=== PATIENT | male | born 1950 | race African-American/Black ===

== ENCOUNTER 2018-05-28 05:48 | Emergency (ER) | payer MEDICARE, OTHER ==
[~2018-05-28] VITALS: Ht 182.9 cm; Wt 76.5 kg
--- NOTE | 2018-05-28 06:22 | RAD ---
INDICATION: right sided weakness, slurred speech, fall COMPARISON: None. TECHNIQUE: Axial CT images obtained through the head without intravenous contrast. One or more of the following individualized dose reduction techniques were utilized for this examination: 1. Automated exposure control; 2. Adjustment of the mA and/or kV according to patient size; 3. Use of iterative reconstruction technique. FINDINGS: No intracranial hemorrhage. No midline shift. Basal cisterns patents. Ventricles and sulci are globally prominent. No acute osseous abnormality. Orbits and paranasal sinuses unremarkable. Scattered foci of low attenuation within the white matter. Dense calcifications of falx. IMPRESSION: 1. No acute intracranial hemorrhage. 2. Scattered regions of low attenuation within the white matter. Non-specific in nature but frequently secondary to small vessel ischemic disease. If there is concern for acute etiology clinically MRI could better assess whether any of these foci are acute. 3. Prominence of ventricles and sulci which is frequently secondary to age related volume loss. Report called to the ER at 6:15 AM on date of exam. Electronically signed by: Skyler Abreu MD (05/28/2018 6:19 AM) [facility]
[2018-05-28] MEDS ORDERED: IOHEXOL 350 MG/ML 100 ML VIAL. IV ONE (06:30)
[2018-05-28 06:40] LABS: BASO % 0 % (0-3); EOS # 0.2 x10^3/uL (0.0-0.7); EOS % 2 % (0-3); HEMATOCRIT 40.7 % (39.0-53.0); HEMOGLOBIN 13.7 g/dL (13.0-17.5); LYMPH # 1.2 x10^3/uL (1.0-4.8); LYMPH % 17 % (24-48); MEAN CORPUSCULAR HEMOGLOBIN 29 pg (25-35); MEAN CORPUSCULAR HGB CONC 34 g/dL (31-37); MEAN CORPUSCULAR VOLUME 85 fL (79-100); MONO # 0.5 x10^3/uL (0.0-1.1); MONO % 7 % (0-9); NEUT # 5.5 x10^3uL (1.8-7.7); NEUT % 74 % (31-73); PLATELET COUNT 257 x10^3/uL (140-400); RED BLOOD COUNT 4.78 x10^6/uL (4.30-5.70); RED CELL DISTRIBUTION WIDTH 13.7 % (11.5-14.5); WHITE BLOOD COUNT 7.5 x10^3/uL (4.0-11.0)
[2018-05-28] MEDS ORDERED: CONTRAST GIVEN MC PRN (06:45)
[2018-05-28 06:55] LABS: ALBUMIN 3.9 g/dL (3.4-5.0); ALBUMIN/GLOBULIN RATIO 0.9 (1.0-1.7); CALCIUM 9.4 mg/dL (8.5-10.1); CREATININE 0.9 mg/dL (0.7-1.3); GFR 84.2; POTASSIUM 4.2 mmol/L (3.5-5.1); TOTAL BILIRUBIN 0.2 mg/dL (0.2-1.0); TOTAL PROTEIN 8.1 g/dL (6.4-8.2)
--- NOTE | 2018-05-28 06:58 | EKG ---
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
--- NOTE | 2018-05-28 07:29 | PHYS DOC ---
Adult General Chief Complaint Chief Complaint: Stroke HPI HPI 67 year old male presents via EMS as a code stroke. The patient stays at the [facility] and around 5 AM his morning anklet went off indicating likely fall. When the staff attended to the patient they noticed right-sided weakness and right-sided facial droop. His last known time well was last night at bedtime which is at least 8 hours ago. Currently, the patient realizes that he cannot move his right leg very well and that his right arm is weaker than normal. He denies any recent alcohol or drug use. He is not complaining of headache or any other pain. He states that this weakness is new. He denies feeling ill prior to morning. Denies fever or chills. 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 Review of Systems Review of Systems Constitutional: Denies fever or chills [] Eyes: Denies change in visual acuity, redness, or eye pain [] HENT: Denies nasal congestion or sore throat [] Respiratory: Denies cough or shortness of breath [] Cardiovascular: No additional information not addressed in HPI [] GI: Denies abdominal pain, nausea, vomiting, bloody stools or diarrhea [] : Denies dysuria or hematuria [] Musculoskeletal: Denies back pain or joint pain [] Integument: Denies rash or skin lesions [] Neurologic: Denies headache. Focal weakness in right upper and lower extremity, dysarthria[] Endocrine: Denies polyuria or polydipsia [] All other systems were reviewed and found to be within normal limits, except as documented in this note. Current Medications Current Medications Current Medications Medications (Trade) Dose Ordered Sig/Crow Start Time Stop Time Status Last Admin Dose Admin Info (Do NOT chart on this entry -- for MONITORING) 1 each PRN DAILY PRN 05/28/18 06:45 05/30/18 06:44 Iohexol (Omnipaque 350 Mg/ml) 100 ml 1X ONCE 05/28/18 06:30 05/28/18 06:31 Allergies Allergies Allergies Coded Allergies Type Severity Reaction Last Updated Verified No Known Drug Allergies 05/28/18 No Physical Exam Physical Exam Constitutional: Well developed, well nourished, no acute distress, non-toxic appearance. [] HENT: Normocephalic, atraumatic, bilateral external ears normal, oropharynx moist, no oral exudates, nose normal. [] Eyes: PERRLA, EOMI, conjunctiva normal, no discharge. [] Neck: Normal range of motion, no tenderness, supple, no stridor. [] Cardiovascular:Heart rate regular rhythm, no murmur [] Lungs & Thorax: Bilateral breath sounds clear to auscultation [] Abdomen: Bowel sounds normal, soft, no tenderness, no masses, no pulsatile masses. [] Skin: Warm, dry, no erythema, no rash. [] Back: No tenderness, no CVA tenderness. [] Extremities: No tenderness, no cyanosis, no clubbing, ROM intact, no edema. [] Neurologic: Alert and oriented, right upper and lower extremity weakness, dysarthria, see NIH scale [] Psychologic: Affect normal, judgement normal, mood normal. [] EKG EKG Sinus rhythm, rate 78, normal axis, no ST elevations or depressions.[] Radiology/Procedures Radiology/Procedures [] Impressions: INDICATION: right sided weakness, slurred speech, fall COMPARISON: None. TECHNIQUE: Axial CT images obtained through the head without intravenous contrast. One or more of the following individualized dose reduction techniques were utilized for this examination: 1. Automated exposure control; 2. Adjustment of the mA and/or kV according to patient size; 3. Use of iterative reconstruction technique. FINDINGS: No intracranial hemorrhage. No midline shift. Basal cisterns patents. Ventricles and sulci are globally prominent. No acute osseous abnormality. Orbits and paranasal sinuses unremarkable. Scattered foci of low attenuation within the white matter. Dense calcifications of falx. IMPRESSION: 1. No acute intracranial hemorrhage. 2. Scattered regions of low attenuation within the white matter. Non-specific in nature but frequently secondary to small vessel ischemic disease. If there is concern for acute etiology clinically MRI could better assess whether any of these foci are acute. 3. Prominence of ventricles and sulci which is frequently secondary to age related volume loss. Report called to the ER at 6:15 AM on date of exam. Electronically signed by: Jade Hurtado MD (05/28/2018 6:19 AM) [facility] DICTATED AND SIGNED BY: JADE HURTADO MD DATE: 05/28/18 0619 CC: TATA EMERY Jr. DO; LAST NEGRON DO; PCP,NO ~ Examination: CT ANGIOGRAPHY HEAD AND NECK History: Possible stroke. Weakness, slurred speech, fall Comparison/Correlation: None FINDINGS: Axial images of the head and neck were obtained following IV contrast To arteriography protocol. MIP images provided. 3-D images provided of the arterial vasculature. Angiographic findings: The aortic arch has a typical branching pattern. There is no arch vessel stenosis. Both common carotid arteries are patent without stenosis. Both internal carotid arteries are patent without stenosis. The external carotid systems are patent. Dominant right vertebral artery is evident. The left vertebral artery is fairly diminutive. Opacification of the left vertebral artery is not well delineated at the C1 and C2 levels. The basilar artery is patent. Both posterior cerebral arteries are patent. The posterior communicating arteries are visualized. The intracranial internal carotid arteries demonstrate no stenosis. The middle cerebral arteries are patent. The anterior cerebral arteries are patent. Significant calcification of the anterior falx is noted. Enhancement of the brain is unremarkable on arterial phase imaging. Nonangiographic findings: There is no intracranial hemorrhage. Shetty-white differentiation is preserved. The ventricles are normal in size and position. Mild chronic paranasal sinusitis is evident.. The orbits are unremarkable. The temporal bones are unremarkable. Bone windows reveal no suspicious lesions. The lung apices demonstrate no acute abnormality. The parotid glands and submandibular glands are unremarkable. The thyroid gland demonstrates no suspicious lesions. There are no laryngeal or pharyngeal masses. There are no pathologically enlarged lymph nodes. Atlantoaxial joint degenerative remodeling is present. Slight anterolisthesis of C3 relation C4 is present anterolisthesis of C3 relation C4 by 0.4 cm present. This is less than grade 1 extent. Severe C3-4 disc space narrowing is present. Anterolisthesis of C3 relation C4 by 0.6 cm is present and between grade 1-2 extent. Reversal cervical lordosis is notable at this level. Moderate seen 4-5 disc space narrowing is present. Severe C6/7 disc space narrowing is present. Sclerotic appearance of the C6 vertebral body diffusely relatively less vertebral body height is noted. No destructive findings however. Bony encroachment on the neural foramina especially at the left C3-4 and C4-5 neural foramina is present. Neural foraminal narrowing at other levels is present to a lesser extent. IMPRESSION: No definite or significant atherocalcific plaque. Opacification of the left vertebral artery at the C1-C2 levels is not definitely delineated. This is of indeterminate significance. Left vertebral artery overall is very diminutive. No suggestion of significant stenosis otherwise involving the head or neck. No aneurysm or dissection involving the arterial vasculature of the head or neck. Significant degenerative changes and reversal of cervical lordosis of the cervical spine. Malalignment noted and appears chronic. PQRS Compliance Statement - Stenosis calculations for CT, MR and conventional angiography are based upon measurement of the distal ICA diameter in accordance with the NASCET methodology. Stenosis calculations for carotid ultrasound studies are derived from validated velocity criteria which are known to correlate with the NASCET methodology. *One or more of the following individualized dose reduction techniques were utilized for this examination: 1. Automated exposure control. 2. Adjustment of the mA and/or kV according to patient size. 3. Use of iterative reconstruction technique. Electronically signed by: Zachery Nam MD (05/28/2018 8:45 AM) [facility] DICTATED AND SIGNED BY: ZACHERY NAM MD DATE: 05/28/18 0845 CC: LAST NEGRON DO; PCP,NO ~ Course & Med Decision Making Course & Med Decision Making Pertinent Labs and Imaging studies reviewed. (See chart for details) The patient's noncontrast head CT did not show any hemorrhage. CTA of head and neck was ordered. The patient's NIH stroke scale in my note was completed after the patient returned from noncontrast CT and CTA of the head and neck. This was at least 30 minutes after arrival. The patient did seem to be improving versus his initial arrival to the hospital. His blood pressure is in the 170s/100s. No BP medication is indicated at this time. We will give him 1L NS due to his contrast exposure. His BP improved to 160s/90s without intervention. His labs are unremarkable. His UDS is negative. His CTA is pending. I discussed options for admission to the patient and he would like to consult the [facility]'s system. I talked with their transfer team and spoke with their neurology team and they've accepted the patient for transfer and admission. The accepting physician is Dr. Cecilia Flowers. He'll go by ambulance. CTA of the head and neck does not show a large vessel occlusion. See official report for more details. Review of the patient's records from the [place] shows that he has been treated for substance abuse, specifically heroin and crack cocaine. It appears he had many years of regular crack cocaine use in the past. He also has a history si gnificant for Hep C, clipped brain aneurysm in 1990, anemia, HTN, impotence, tobacco use. [] Dragon Disclaimer Dragon Disclaimer This electronic medical record was generated, in whole or in part, using a voice recognition dictation system. NIH Stroke Scale: NIH Stroke Scale Response (Comments) Value Level of Consciousness: 0 Alert/Responsive 0 LOC Questions: 0 Answers both correctly 0 LOC Commands: 0 Performs both tasks 0 Best Gaze: 0 Normal 0 Visual: 0 No visual loss 0 Facial Palsy: 0 Normal, symmetrical 0 Motor - Left Arm 0 No drift 0 Motor - Right Arm 1 Drifts but can hold 1 Motor - Left Leg 0 No drift 0 Motor: Right Leg 3 Limb falls 3 Limb Ataxia: 0 Absent 0 Sensory: 1 Mid to moderate loss 1 Best Language: 1 Mild to mod aphasia 1 Dysathria: 1 Mild to moderate 1 Extinction and Inattention: 0 Normal 0 Total 7 Departure Departure: Impression: Primary Impression: Ischemic stroke Disposition: XFER SHT-TRM HOSP Condition: STABLE Referrals: PCP,NO (PCP) LAST NEGRON DO May 28, 2018 07:29
[2018-05-28] MEDS ORDERED: IV NORMAL SALINE 1,000ML 1,000 ML IV ONE (07:30)
--- NOTE | 2018-05-28 07:54 | RAD ---
CHEST AP ONLY Clinical Indication: Weakness, fall, possible stroke Comparison: None. Findings: Portable upright frontal view chest was obtained. The cardiomediastinal silhouette is normal. Mild left basilar atelectasis medially is present. There is no pneumothorax. No pleural effusion is appreciated. No acute bone abnormality. Dextroconvex appearance of the thoracic spine noted. Degenerative narrowing of the glenohumeral joints. IMPRESSION: Mild left basilar atelectasis. Electronically signed by: Zachery Najera MD (05/28/2018 7:50 AM) [facility]
[2018-05-28 07:55] LABS: AMPHETAMINE/METHAMPHETAMINE NEG (NEG); BARBITURATES NEG (NEG); BENZODIAZEPINES NEG (NEG); CANNABINOIDS NEG (NEG); COCAINE NEG (NEG); METHADONE NEG (NEG); OPIATES NEG (NEG); PHENCYCLIDINE NEG (NEG)
[2018-05-28 07:57] LABS: COLOR,URINE STRAW
[2018-05-28 07:58] LABS: BACTERIA,URINE 0 /HPF (0-FEW); BILIRUBIN,URINE NEG (NEG); CLARITY,URINE CLEAR; GLUCOSE,URINE NEG (NEG); NITRITE,URINE NEG (NEG); RBC,URINE 0 /HPF (0-2); UROBILINOGEN,URINE 0.2 mg/dL (0.2 mg/dL); WBC,URINE 0 /HPF (0-4)
--- NOTE | 2018-05-28 08:48 | RAD ---
Examination: CT ANGIOGRAPHY HEAD AND NECK History: Possible stroke. Weakness, slurred speech, fall Comparison/Correlation: None FINDINGS: Axial images of the head and neck were obtained following IV contrast To arteriography protocol. MIP images provided. 3-D images provided of the arterial vasculature. Angiographic findings: The aortic arch has a typical branching pattern. There is no arch vessel stenosis. Both common carotid arteries are patent without stenosis. Both internal carotid arteries are patent without stenosis. The external carotid systems are patent. Dominant right vertebral artery is evident. The left vertebral artery is fairly diminutive. Opacification of the left vertebral artery is not well delineated at the C1 and C2 levels. The basilar artery is patent. Both posterior cerebral arteries are patent. The posterior communicating arteries are visualized. The intracranial internal carotid arteries demonstrate no stenosis. The middle cerebral arteries are patent. The anterior cerebral arteries are patent. Significant calcification of the anterior falx is noted. Enhancement of the brain is unremarkable on arterial phase imaging. Nonangiographic findings: There is no intracranial hemorrhage. Shetty-white differentiation is preserved. The ventricles are normal in size and position. Mild chronic paranasal sinusitis is evident.. The orbits are unremarkable. The temporal bones are unremarkable. Bone windows reveal no suspicious lesions. The lung apices demonstrate no acute abnormality. The parotid glands and submandibular glands are unremarkable. The thyroid gland demonstrates no suspicious lesions. There are no laryngeal or pharyngeal masses. There are no pathologically enlarged lymph nodes. Atlantoaxial joint degenerative remodeling is present. Slight anterolisthesis of C3 relation C4 is present anterolisthesis of C3 relation C4 by 0.4 cm present. This is less than grade 1 extent. Severe C3-4 disc space narrowing is present. Anterolisthesis of C3 relation C4 by 0.6 cm is present and between grade 1-2 extent. Reversal cervical lordosis is notable at this level. Moderate seen 4-5 disc space narrowing is present. Severe C6/7 disc space narrowing is present. Sclerotic appearance of the C6 vertebral body diffusely relatively less vertebral body height is noted. No destructive findings however. Bony encroachment on the neural foramina especially at the left C3-4 and C4-5 neural foramina is present. Neural foraminal narrowing at other levels is present to a lesser extent. IMPRESSION: No definite or significant atherocalcific plaque. Opacification of the left vertebral artery at the C1-C2 levels is not definitely delineated. This is of indeterminate significance. Left vertebral artery overall is very diminutive. No suggestion of significant stenosis otherwise involving the head or neck. No aneurysm or dissection involving the arterial vasculature of the head or neck. Significant degenerative changes and reversal of cervical lordosis of the cervical spine. Malalignment noted and appears chronic. PQRS Compliance Statement - Stenosis calculations for CT, MR and conventional angiography are based upon measurement of the distal ICA diameter in accordance with the NASCET methodology. Stenosis calculations for carotid ultrasound studies are derived from validated velocity criteria which are known to correlate with the NASCET methodology. *One or more of the following individualized dose reduction techniques were utilized for this examination: 1. Automated exposure control. 2. Adjustment of the mA and/or kV according to patient size. 3. Use of iterative reconstruction technique. Electronically signed by: Zachery Najera MD (05/28/2018 8:45 AM) [facility]
[2018-05-28 09:14] VITALS: BP 166/98
== END 2018-05-28 09:48 | disposition short-term general hospital (02) ==
LOC: ER 05:48
DX: I63.9 Cerebral infarction, unspecified (principal); R53.1 Weakness; R47.81 Slurred speech; R29.810 Facial weakness; I10 Essential (primary) hypertension; Z86.2 Personal history of diseases of the blood and blood-forming organs and certain disorders involving the immune mechanism; Z72.0 Tobacco use
CPT/HCPCS: 36415; 70450; 70496; 70498; 71045; 80053; 80307; 81001; 84484; 85025; 85610; 85730; 93005; 99285; Q9967; J7030